=== PATIENT | female | born 1995 | race Caucasian/White ===

== ENCOUNTER 2019-01-08 09:57 | Emergency (ER) | payer OTHER ==
[2019-01-08 10:35] VITALS: BP 139/78
--- NOTE | 2019-01-08 11:44 | UC ---
Hand/Wrist HPI - HPI Summary HPI Summary: 24-year-old woman comes in with a chief complaint of right thumb pain. Yesterday while playing softball she slid into base injuring her right thumb. Pain is primarily in the PIP. She has pain with range of motion. Ice on it which did help with the pain. No skin break. Denies any wrist injury. No complaint of any numbness. - History Of Current Complaint Chief Complaint: UCUpperExtremity Stated Complaint: RIGHT HAND INJURY Time Seen by Provider: 01/08/19 11:18 Hx Last Menstrual Period: 12/31/18 Pain Intensity: 7 - Allergies/Home Medications Allergies/Adverse Reactions: Allergies Allergy/AdvReac Type Severity Reaction Status Date / Time No Known Allergies Allergy Verified 01/08/19 10:34 Home Medications: Home Medications Norethindrone-E.estradiol-Iron [June10/15 1-20 mg-Mcg] 1 tab PO DAILY [History Confirmed 01/08/19] PMH/Surg Hx/FS Hx/Imm Hx Previously Healthy: Yes - Surgical History Surgical History: None - Family History Known Family History: Positive: Non-Contributory - Social History Alcohol Use: None Substance Use Type: None Smoking Status (MU): Never Smoked Tobacco Review of Systems All Other Systems Reviewed And Are Negative: Yes Constitutional: Positive: Negative Skin: Positive: Negative Eyes: Positive: Negative ENT: Positive: Negative Respiratory: Positive: Negative Cardiovascular: Positive: Negative Gastrointestinal: Positive: Negative Motor: Positive: Negative Neurovascular: Positive: Negative Musculoskeletal: Positive: Other: - SEE HPI Neurological: Positive: Negative Psychological: Positive: Negative Is Patient Immunocompromised?: No Physical Exam Triage Information Reviewed: Yes Appearance: Well-Appearing, No Pain Distress, Well-Nourished Vital Signs: Initial Vital Signs Temp 98.5 F 01/08/19 10:29 Pulse 91 01/08/19 10:29 Resp 16 01/08/19 10:29 BP 139/78 01/08/19 10:29 Pulse Ox 99 01/08/19 10:29 Vital Signs Reviewed: Yes Eye Exam: Normal Neck: Positive: Supple Respiratory: Positive: No respiratory distress Musculoskeletal: Positive: Other: - The right thumb is tender to palpation primarily around the PIP. She does have good range of motion of the thumb however she has more pain primarily with extension of the thumb. Normal capillary refill no sensation deficit. Neurological Exam: Normal Neurological: Positive: Alert, Muscle Tone Normal Psychological Exam: Normal Psychological: Positive: Normal Response To Family, Age Appropriate Behavior Skin Exam: Normal Hand/Wrist Course/Dx - Course Course Of Treatment: Patient Name: LOLLY GRAY Medical Record#: [id number] Ordering Physician: Adrien Rivas MD Acct.#: [id number] : 1995 Age: 24 Sex: F Location: [facility] [place] Exam Date: 01/08/19 1030 ADM Status: REG ER Order Information: HAND - RIGHT MINIMUM 3 VIEWS Accession Number: [id number] CPT: 51618 Indication: Right hand injury. 4 views of the right hand demonstrates no fracture or dislocation. No other bone or joint abnormality is identified. IMPRESSION: No fracture of the right hand is noted. Special attention was paid to the first metacarpal. <Electronically signed by Jill Acosta MD in OV> 01/08/19 1043 I discussed the x-ray with the patient. No fracture seen on radiologist's interpretation. Patient was placed in a thumb spica splint by nursing and patient is neurovascularly intact after placement of the thumb spica splint. Plan is ice immobilization anti-inflammatories and follow-up with sports medicine. - Differential Dx/Diagnosis Provider Diagnosis: Sprain of right thumb Discharge - Sign-Out/Discharge Documenting (check all that apply): Patient Departure All imaging exams completed and their final reports reviewed: Yes - Discharge Plan Condition: Stable Disposition: HOME Patient Education Materials: Finger Sprain (ED) Referrals: [facility] [Provider Group] Additional Instructions: FOLLOW UP WITH SPORTS MEDICINE IF NOT COMPLETELY IMPROVED. GET REEVALUATED SOONER FOR WORSENING OF YOUR CONDITION OR QUESTIONS OR CONCERNS. - Billing Disposition and Condition Condition: STABLE Disposition: Home
== END 2019-01-08 11:54 | disposition home or self-care (01) ==
LOC: UCCORT 09:57
DX: S63.601A Unspecified sprain of right thumb, initial encounter (principal); X58.XXXA Exposure to other specified factors, initial encounter; Y93.64 Activity, baseball; Y92.320 Baseball field as the place of occurrence of the external cause
CPT/HCPCS: 99202; G0463